=== PATIENT | male | born 1975 | race Caucasian/White ===

== ENCOUNTER 2018-11-02 07:24 | Outpatient (CLI) | payer MEDICAID ==
[~2018-11-02] VITALS: Ht 177.8 cm; Wt 90.7 kg
[2018-11-02] MEDS ORDERED: albuterol 2.5 MG/3 ML nebule NEB PRN (07:50)
== END 2018-11-02 23:59 | disposition home or self-care (01) ==
LOC: RT 07:24
PROVIDERS: ATTEND Physician Assistant Medical
DX: R06.02 Shortness of breath (principal); R06.2 Wheezing
CPT/HCPCS: 94060; 94640